=== PATIENT | male | born 1950 | race American Indian/Alaskan Native ===

== ENCOUNTER 2018-10-21 02:08 | Emergency (ER) | payer BC ==
[2018-10-21 02:11] VITALS: BMI 28.8
[2018-10-21 02:15] VITALS: RESP 18
[2018-10-21 03:09] LABS: ALB/GLOB RATIO 1.6 (1.1-1.8); ALBUMIN 4.4 g/dL (3.0-4.8); ALT/SGPT 28 U/L (7-56); AST/SGOT 31 U/L (17-59); BLOOD UREA NITROGEN 23 mg/dL (7-21); CALCIUM 9.6 mg/dL (8.4-10.5); GFR NON-AFRICAN AMERICAN > 60
[2018-10-21 03:10] LABS: EOS # 0.1 (0.0-0.7); EOS % 0.8 % (1.5-5.0); GRAN # 10.41 (1.4-6.5); GRAN % 79.5 % (50.0-68.0); HEMOGLOBIN 13.5 g/dL (14.0-18.0); LYMPH # 2.1 (1.2-3.4); LYMPH % 15.7 % (22.0-35.0); MEAN CORPUSCULAR HEMOGLOBIN 31.3 pg (25.0-35.0); MEAN CORPUSCULAR HGB CONC 32.2 g/dl (31.0-37.0); MEAN PLATELET VOLUME 11.3 fl (7.0-11.0); MONO # 0.5 (0.1-0.6); RBC 4.32 10^6/uL (3.5-6.1); WHITE BLOOD COUNT 13.1 10^3/uL (4.5-11.0)
[2018-10-21 03:20] LABS: TROPONIN I < 0.01 ng/mL
--- NOTE | 2018-10-21 03:22 | ED PDOC ---
Arrival/HPI - General Chief Complaint: Altered Mental Status Time Seen by Provider: 10/21/18 02:11 Historian: Patient, Spouse - History of Present Illness Narrative History of Present Illness (Text): 10/21/18 05:22 68 year old male, with no significant past medical history, presents to the emergency department for evaluation of new onset seizure. Patient's states they were sleeping when the bed started shaking and she noticed patient was having a tonic-clonic seizure. states patient fell off the bed. Patient denies any complaints at this time. Patient is verbal, answering appropriately. Patient denies any recent travel, sick contact, or head trauma. Patient also denies any fever, neck stiffness, headache, dizziness, or any other complaints. Time/Duration: Prior to Arrival Symptom Onset: Sudden Symptom Course: Resolved Activities at Onset: Sleeping Past Medical History - Provider Review Nursing Documentation Reviewed: Yes - Cardiac Hx Hypertension: Yes - Hematological/Oncological Hx Cancer: Yes (prostate ca) - Psychiatric Hx Substance Use: No - Anesthesia Hx Anesthesia: No Family/Social History - Physician Review Nursing Documentation Reviewed: Yes Family/Social History: No Known Family HX Smoking Status: Never Smoked Hx Alcohol Use: Yes Frequency of alcohol use: Daily Hx Substance Use: No Allergies/Home Meds Allergies/Adverse Reactions: Allergies No Known Allergies Allergy (Verified 10/21/18 02:10) Review of Systems - Physician Review All systems were reviewed & negative as marked: Yes - Review of Systems Constitutional: absent: Fevers ENT: absent: Other (stiff neck) Neurological: Seizure. absent: Headache, Dizziness Physical Exam Vital Signs Reviewed: Yes Vital Signs Temp Pulse Resp BP Pulse Ox 10/21/18 02:14 99.0 F 93 H 18 143/91 H 96 Temperature: Afebrile Blood Pressure: Normal Pulse: Regular Respiratory Rate: Normal Appearance: Positive for: Well-Appearing, Non-Toxic, Comfortable Pain Distress: None Mental Status: Positive for: Alert and Oriented X 3 Finger Stick Blood Glucose: 159 - Systems Exam Head: Present: Normocephalic, Laceration (3cm lac anterior to left ear) Pupils: Present: PERRL Extroacular Muscles: Present: EOMI Conjunctiva: Present: Normal Mouth: Present: Moist Mucous Membranes Neck: Present: Normal Range of Motion Respiratory/Chest: Present: Clear to Auscultation, Good Air Exchange. No: Respiratory Distress, Accessory Muscle Use Cardiovascular: Present: Regular Rate and Rhythm, Normal S1, S2. No: Murmurs Abdomen: No: Tenderness, Distention, Peritoneal Signs Back: Present: Normal Inspection Upper Extremity: Present: Normal Inspection. No: Cyanosis, Edema Lower Extremity: Present: Normal Inspection. No: Edema Neurological: Present: GCS=15, CN II-XII Intact, Speech Normal Skin: Present: Warm, Dry, Normal Color. No: Rashes Psychiatric: Present: Alert, Oriented x 3, Normal Insight, Normal Concentration Medical Decision Making ED Course and Treatment: 10/21/18 05:20 Impression: 68 year old male presents for evaluation status post seizure Plan: -- CT Head -- CT CSPine -- EKG -- Chest X-ray -- Bacitracin -- TDAP -- Urine Culture -- Reassess and disposition Prior Visits: Notes and results from previous visits were reviewed. Progress Notes: EKG Reviewed by me, shows: Normal sinus rhythm @ 86 bpm 10/21/18 05:35 PROCEDURE: LACERATION REPAIR Performed by the emergency provider Location: Anterior to left ear Length: 3 cm Description: no foreign bodies Distal CMS: Normal. No deficits. Neurovascularly intact. Anesthesia: Lidocaine 1% Preparation: The wound was cleaned with NS and Betadyne. The area was prepped and draped in the usual sterile fashion. Exploration: The wound was explored and no foreign bodies were found. Procedure: The wound was closed with 4 nylon. There was good approximation. In total, 7 were used. Post-Procedure: Good closure and hemostasis. The patient tolerated the procedure well and there were no complications. CSM remains intact. Post procedure dressing applied. 10/21/18 05:[address] Sushil Harrison, who asks that patient follow up with him in his office. - Lab Interpretations Lab Results: Troponin I < 0.01 ng/mL 10/21/18 02:46 Total Bilirubin 0.8 mg/dL (0.2-1.3) 10/21/18 02:46 AST 31 U/L (17-59) 10/21/18 02:46 ALT 28 U/L (7-56) 10/21/18 02:46 Alkaline Phosphatase 64 U/L (38-126) 10/21/18 02:46 Total Protein 7.2 g/dL (5.8-8.3) 10/21/18 02:46 Albumin 4.4 g/dL (3.0-4.8) 10/21/18 02:46 Globulin 2.8 gm/dL 10/21/18 02:46 Albumin/Globulin Ratio 1.6 (1.1-1.8) 10/21/18 02:46 - RAD Interpretation Radiology Orders: 10/21/18 02:12 HEAD W/O CONTRAST [CT] Stat CHEST ONE VIEW [RAD] Stat 10/21/18 02:53 CERVICAL SPINE W/O CONTRAST [CT] Stat - Scribe Statement The provider has reviewed the documentation as recorded by the Moniibwinnie Lopez Provider Scribe Attestation: All medical record entries made by the Scribe were at my direction and personally dictated by me. I have reviewed the chart and agree that the record accurately reflects my personal performance of the history, physical exam, medical decision making, and the department course for this patient. I have also personally directed, reviewed, and agree with the discharge instructions and disposition. Disposition/Present on Arrival - Present on Arrival Any Indicators Present on Arrival: No History of DVT/PE: No History of Uncontrolled Diabetes: No Urinary Catheter: No History of Decub. Ulcer: No History Surgical Site Infection Following: None - Disposition Have Diagnosis and Disposition been Completed?: Yes Diagnosis: New onset seizure, Facial laceration Disposition: HOME/ ROUTINE Disposition Time: 04:40 Condition: GOOD Discharge Instructions (ExitCare): Seizures, Adult (DC), Laceration Repair With Stitches (DC) Additional Instructions: MEGA SALAS, thank you for letting us take care of you today. Your provider was Boo Plascencia DO and you were treated for SEIZURE. The emergency medical care you received today was directed at your acute symptoms. If you were prescribed any medication, please fill it and take as directed. It may take several days for your symptoms to resolve. Return to the Emergency Department if your symptoms worsen, do not improve, or if you have any other problems. Please contact your doctor or call one of the physicians/clinics you have been referred to that are listed on the Patient Visit Information form that is included in your discharge packet. Bring any paperwork you were given at discharge with you along with any medications you are taking to your follow up visit. Our treatment cannot replace ongoing medical care by a primary care provider outside of the emergency department. Thank you for allowing the [facility] team to be part of your care today. Follow up with Dr. Harrison in 1-2 days for re-evaluation and further management. Stitches are to be removed in 1 week. Referrals: Sushil Harrison JD, MD [Primary Care Provider] - Follow up with primary Forms: [employer] (Greek)
[2018-10-21 04:01] LABS: URINE BILIRUBIN NEGATIVE (NEGATIVE); URINE BLOOD NEGATIVE (NEGATIVE); URINE GLUCOSE (UA) NEGATIVE (NEGATIVE); URINE LEUKOCYTE ESTERASE NEGATIVE Leu/uL (NEGATIVE); URINE PROTEIN 100 mg/dL (<30 mg/dL); URINE UROBILINOGEN 0.2 E.U./dL (<1 E.U./dL)
[2018-10-21 04:03] LABS: URINE APPEARANCE CLEAR (CLEAR); URINE COLOR YELLOW (YELLOW)
[2018-10-21 04:08] LABS: BARBITURATES, UR NEGATIVE (NEGATIVE); BENZODIAZEPINES, UR NEGATIVE (NEGATIVE); OPIATES, UR NEGATIVE (NEGATIVE); PHENCYCLIDINE, UR NEGATIVE (NEGATIVE)
[2018-10-21 04:26] LABS: URINE EPITHELIAL CELLS 0 - 2 /hpf (0-5); URINE RBC 0 - 2 /hpf (0-2); URINE WBC 0 - 2 /hpf (0-6)
[2018-10-21] MEDS ORDERED: TDAP Vaccine 0.5 mL Syr IM ONE (04:50)
[2018-10-21] MEDS ORDERED: Bacitracin 500 Units/gm Oint Foilpak UD TOP ONE (04:50)
[2018-10-21 05:29] VITALS: BP 164/70; PULSE 75; TEMP 98.9; O2SAT 95
--- NOTE | 2018-10-21 08:26 | CT ---
Date of service: 10/21/2018 PROCEDURE: CT HEAD WITHOUT CONTRAST. HISTORY: new onset seizure COMPARISON: None available. TECHNIQUE: Axial computed tomography images were obtained through the head/brain without intravenous contrast. Radiation dose: Total exam DLP = 866.49 mGy-cm. This CT exam was performed using one or more of the following dose reduction techniques: Automated exposure control, adjustment of the mA and/or kV according to patient size, and/or use of iterative reconstruction technique. FINDINGS: HEMORRHAGE: No intracranial hemorrhage. BRAIN: No mass effect or edema. Chronic microvascular changes. VENTRICLES: Unremarkable. No hydrocephalus. CALVARIUM: Unremarkable. PARANASAL SINUSES: Unremarkable as visualized. No significant inflammatory changes. MASTOID AIR CELLS: Unremarkable as visualized. No inflammatory changes. OTHER FINDINGS: The report concurs with the preliminary [facility] report IMPRESSION: No acute intracranial findings
--- NOTE | 2018-10-21 08:42 | RAD ---
Date of service: 10/21/2018 PROCEDURE: CHEST RADIOGRAPH, 1 VIEW HISTORY: r/o infiltrate COMPARISON: 01/15/2013. FINDINGS: LUNGS: There is bibasilar atelectasis. No focal consolidation. PLEURA: No pneumothorax or pleural effusion. CARDIOVASCULAR: The heart is normal in size. No aortic atherosclerotic calcifications present. OSSEOUS STRUCTURES: Within normal limits for the patient's age. VISUALIZED UPPER ABDOMEN: Normal. OTHER FINDINGS: None. IMPRESSION: No active pulmonary disease.
--- NOTE | 2018-10-21 09:09 | CT ---
Date of service: 10/21/2018 PROCEDURE: CT Cervical Spine without contrast HISTORY: s/p fall r/o fx COMPARISON: None available. TECHNIQUE: Axial computed tomography images were obtained of the cervical spine without the use of intravenous contrast. Coronal and sagittal reformatted images were created and reviewed. Radiation dose: Total exam DLP = 498.51 mGy-cm. This CT exam was performed using one or more of the following dose reduction techniques: Automated exposure control, adjustment of the mA and/or kV according to patient size, and/or use of iterative reconstruction technique. FINDINGS: VERTEBRAE: There is no evidence of fracture. There is kyphotic curvature of the cervical spine and multilevel degenerative changes DISCS/SPINAL CANAL/NEURAL FORAMINA: Foraminal stenosis is seen a multiple levels. Disc degeneration is most severe at C5-6 and C6-7. Mild central stenosis PARASPINAL SOFT TISSUES: Unremarkable. OTHER FINDINGS: The report concurs with the preliminary [facility] report IMPRESSION: Chronic degenerative changes. No acute findings. No evidence of fracture
--- NOTE | 2018-10-21 20:48 | CARD ---
APPROVED REPORT Date of service: 10/21/2018 EKG Measurement Heart [id number] <Conclusion> Normal sinus rhythm Left ventricular hypertrophy Otherwise normal ECG
== END 2018-10-21 05:19 | disposition home or self-care (01) ==
LOC: ED 02:08
DX: S01.81XA Laceration without foreign body of other part of head, initial encounter (principal); W06.XXXA Fall from bed, initial encounter; Y92.003 Bedroom of unspecified non-institutional (private) residence as the place of occurrence of the external cause; R56.9 Unspecified convulsions; I10 Essential (primary) hypertension; Z85.46 Personal history of malignant neoplasm of prostate; Z23 Encounter for immunization
CPT/HCPCS: 12013; 70450; 71045; 72125; 80053; 81001; 82550; 82948; 83615; 83735; 84484; 85025; 87086; 90471; 90715; 93005; 99285; G0480

== ENCOUNTER 2018-10-30 10:33 | Outpatient (CLI) | payer BC | END 2018-10-30 10:34 | disposition home or self-care (01) | LOC: RAD 10:33 ==

== ENCOUNTER 2018-10-30 11:58 | Emergency (ER) | payer BC ==
[2018-10-30 12:13] VITALS: BP 134/85; PULSE 67; RESP 18; TEMP 97.7; O2SAT 97; BMI 28.5
--- NOTE | 2018-10-30 12:32 | ED PDOC ---
Arrival/HPI - General Historian: Patient - History of Present Illness Narrative History of Present Illness (Text): 10/30/18 12:17 68 y/o male, with past medical history of Prostrate CA and seizure, presents to the Emergency department for the suture removal s/p sutured on the left ear about 9 days ago s/p fall secondary to seizure. Patient informs following up with a neurologist and his PMD for seizure and currently denies any somatic complaints. Patient informs appropriate healing of the wound with dry and clean area, prompting him to present today for suture removal. Patient denies any fever, chills, nausea, vomiting, chest pain, shortness of breath, hearing changes, headache, trauma or injury to the site or any other complaints. Time/Duration: > week Symptom Course: Improving Activities at Onset: Light Context: Home Past Medical History - Provider Review Nursing Documentation Reviewed: Yes - Cardiac Hx Hypertension: Yes - Hematological/Oncological Hx Cancer: Yes (prostate ca) - Psychiatric Hx Substance Use: No - Anesthesia Hx Anesthesia: No Family/Social History - Physician Review Nursing Documentation Reviewed: Yes Family/Social History: No Known Family HX Smoking Status: Never Smoked Hx Alcohol Use: Yes Hx Substance Use: No Allergies/Home Meds Allergies/Adverse Reactions: Allergies No Known Allergies Allergy (Verified 10/21/18 02:10) Review of Systems - Physician Review All systems were reviewed & negative as marked: Yes - Review of Systems Constitutional: absent: Fevers Eyes: absent: Vision Changes ENT: Other (Suture wound left ear). absent: Hearing Changes Respiratory: absent: SOB, Cough Cardiovascular: absent: Chest Pain, [place] Gastrointestinal: absent: Abdominal Pain, Diarrhea, Nausea, Vomiting, Appetite Changes Genitourinary Male: absent: Dysuria, Frequency, Urinary Output Changes Musculoskeletal: absent: Back Pain, Neck Pain Skin: absent: Rash Neurological: absent: Headache, Dizziness, Focal Weakness, Seizure Endocrine: absent: Polyuria Psychiatric: absent: Anxiety Physical Exam Vital Signs Reviewed: Yes Vital Signs Temp Pulse Resp BP Pulse Ox 10/30/18 12:13 97.7 F 67 18 134/85 97 Temperature: Afebrile Blood Pressure: Normal Pulse: Regular Respiratory Rate: Normal Appearance: Positive for: Well-Appearing, Non-Toxic, Comfortable Pain Distress: None Mental Status: Positive for: Alert and Oriented X 3 - Systems Exam Head: Present: Atraumatic, Normocephalic Pupils: Present: PERRL Extroacular Muscles: Present: EOMI Conjunctiva: Present: Normal Mouth: Present: Moist Mucous Membranes Neck: Present: Normal Range of Motion Respiratory/Chest: Present: Clear to Auscultation, Good Air Exchange. No: Respiratory Distress, Accessory Muscle Use Cardiovascular: Present: Regular Rate and Rhythm, Normal S1, S2. No: Murmurs Abdomen: No: Tenderness, Distention, Peritoneal Signs Back: Present: Normal Inspection Upper Extremity: Present: Normal Inspection. No: Cyanosis, Edema Lower Extremity: Present: Normal Inspection. No: Edema Neurological: Present: GCS=15, CN II-XII Intact, Speech Normal Skin: Present: Warm, Dry, Normal Color, Other (Lt. ear between the ear and the facial region noted to have 7 sutures with wound appear dry and clean with healed status, no cellulitis or streaking, no yellow crustiness) Psychiatric: Present: Alert, Oriented x 3, Normal Insight, Normal Concentration Medical Decision Making ED Course and Treatment: 10/30/18 12:42 -- Suture removal -- Reassessment and final disposition 10/30/18 12:50 PROCEDURE: SUTURE REMOVAL Performed by the emergency provider Location: Left ear Length: 7 sutures Distal CMS: Normal. No deficits. Neurovascularly intact. Preparation: The wound was cleaned with NS and Betadyne. The area was prepped and draped in the usual sterile fashion. Procedure: In total, 7 sutures were removed, no additional sutures noted. Post-Procedure: Good closure and hemostasis. The patient tolerated the procedure well and there were no complications. CSM remains intact. Patient was advised to avoid stretching and to play sports. Patient was asked to follow up with PMD in 2-3 days. - PA / WELDING OPERATOR / Resident Statement MD/DO has reviewed & agrees with the documentation as recorded. - Scribe Statement The provider has reviewed the documentation as recorded by the Moniibwinnie Lagunas. All medical record entries made by the Moniibwinnie were at my direction and personally dictated by me. I have reviewed the chart and agree that the record accurately reflects my personal performance of the history, physical exam, medical decision making, and the department course for this patient. I have also personally directed, reviewed, and agree with the discharge instructions and disposition. Disposition/Present on Arrival - Present on Arrival Any Indicators Present on Arrival: No History of DVT/PE: No History of Uncontrolled Diabetes: No Urinary Catheter: No History of Decub. Ulcer: No History Surgical Site Infection Following: None - Disposition Have Diagnosis and Disposition been Completed?: Yes Diagnosis: Visit for suture removal Disposition: HOME/ ROUTINE Disposition Time: 12:34 Patient Plan: Discharge Patient Problems: Current Active Problems Problem Status Onset Visit for suture removal Acute Condition: GOOD Discharge Instructions (ExitCare): Stitches Removal Additional Instructions: Please follow up with your own pmd within 2 days, avoid playing sport and sleeping on the previously sutures wound or using headphone as the wound just healed, return to the ER for any new or worsening signs or symptoms. Referrals: [facility] [place] [Outside] - Follow up with primary
== END 2018-10-30 12:58 | disposition home or self-care (01) ==
LOC: ED 11:58
DX: Z48.02 Encounter for removal of sutures (principal)